=== PATIENT | male | born 1990 | race Caucasian/White ===

== ENCOUNTER → 2017-08-30 07:59 | Outpatient (CLI) | payer OTHER, SELFPAY ==
--- NOTE | 2017-08-30 08:20 | US_ITS ---
STUDY: ULTRASOUND BREAST - LEFT REASON FOR EXAM: Male, 27 years old. Palpable lump left breast. TECHNIQUE: Axial and longitudinal images of the LEFT breast were performed with a high resolution ultrasound transducer. COMPARISON: None. FINDINGS: LEFT Breast: Scattered fibroglandular tissue. No mass lesion is seen. Findings in keeping with gynecomastia. US/Breast Limited Unilateral IMPRESSION: Gynecomastia. ASSESSMENT CATEGORY: BIRADS Category 2: Benign. A letter regarding these results will be sent to the patient by the facility within 30 days. Electronically Signed: Reyes Aguilar MD at 9:37 EST Tel [phone], Service support ,
[2017-08-30 10:18] LABS: Absolute Lymphocyte Count 2.38 X10^3/ul (0.83-4.51); Basophil# 0.03 X10^3/uL; Basophil% 0.6 % (0-1); Eosinophil# 0.26 X10^3/uL; Hematocrit 43.6 % (40-54); Hemoglobin 15.3 g/dl (13.0-16.5); Lymphocyte # 2.38 X10^3/ul (4.0); Lymphocyte % 45.3 % (19-41); Mean Corp Hgb Conc 35.1 g/gl (32-36); Mean Corpuscular Hgb 31.3 pg (27.0-32.0); Mean Corpuscular Volume 89.2 fL (80-94); Monocyte# 0.55 X10^3/uL; Monocyte% 10.5 % (0-10); Neutrophil # 2.02 X10^3/uL (2.7-7.7); Neutrophil % 38.4 % (47-70); Platelet Count 205 K/mm3 (150-450); RBC Distribution Width CV 13.8 % (11.6-14.6); RBC Distribution Width SD 44.4 fl (35.1-43.9); Red Blood Count 4.89 M/mm3 (4.6-6.2); White Blood Count 5.3 K/mm3 (4.4-11.0)
[2017-08-30 10:20] LABS: POSITIVE COUNT NO; POSITIVE DIFFERENTIAL NO; POSITIVE MORPHOLOGY NO
[2017-08-30 10:51] LABS: ALB/GLOB Ratio 1.3 RATIO (0.9-2.4); AST(SGOT) 41 U/L (15-37); Alanine Aminotransfer ALT/SGPT 68 U/L (16-61); Albumin, Serum 4.4 g/dL (3.2-5.0); Alkaline Phosphatase 58 U/L (45-117); Anion Gap 6 (5-15); BUN 17 mg/dL (7-18); BUN/Creat Ratio 11.5 RATIO (10-20); Calcium,Total 8.7 mg/dL (8.5-10.1); Chloride 102 mmol/L (98-107); Cholesterol 173 mg/dL (200); Creatinine, Serum 1.48 mg/dL (0.70-1.30); EST Glomerular Filtration Rate 60 mL/min (>60); Est Glom Filt Rate - Afr Amer 73 mL/min (>60); Globulin 3.4 g/dL (2.2-4.2); Glucose 85 mg/dL (74-106); High Density Lipoprotein 27 mg/dL; PSA,Total - Annual Screen 0.86 ng/mL (0.00-4.00); Potassium 3.8 mmol/L (3.5-5.1); Protein, Total 7.8 g/dL (6.4-8.2); Sodium Level 138 mmol/L (136-145); Triglycerides 149 mg/dL; Very Low Density Lipoprotein 30 mg/dL (5-40)
[2017-09-03 09:55] LABS: Testosterone, Free 8.52 ng/dL (5.00-21.00)
[2017-09-03 15:46] LABS: Testosterone, % Free 2.12 % (1.50-4.20); Testosterone, Total 402 ng/dL (264-916)
== END ==
PROVIDERS: Visit Provider Internal Medicine
DX: N63.20 Unspecified lump in the left breast, unspecified quadrant (principal); F55.3 Abuse of steroids or hormones
CPT/HCPCS: 36415; 76642; 80053; 80061; 84153; 84402; 84403; 85025; G0103